=== PATIENT | male | born 2000 | race Caucasian/White ===

== ENCOUNTER 2023-09-21 10:20 | Emergency (ER) | payer MEDICAID, OTHER ==
[~2023-09-21] VITALS: Ht 172.7 cm; Wt 145.1 kg
[2023-09-21 10:30] VITALS: BP 130/72; PULSE 101; RESP 20; TEMP 98.9; O2SAT 98
[2023-09-21] MEDS ORDERED: KETOROLAC 30 MG/ML VIAL IM ONE (10:50)
[2023-09-21] MEDS ORDERED: DEXAMETHASONE 10 MG/ML VIAL IM ONE (10:50)
[2023-09-21] MEDS ORDERED: IBUP-2213 PO (10:50)
[2023-09-21 11:15] VITALS: BP 130/72; PULSE 101; RESP 20; TEMP 98.9; O2SAT 98
== END 2023-09-21 11:10 | disposition home or self-care (01) ==
LOC: MED 10:20
DX: J03.90 Acute tonsillitis, unspecified (principal); Z79.899 Other long term (current) drug therapy
CPT/HCPCS: 96372; 99284; J1100; J1885

== ENCOUNTER 2024-05-19 00:05 | Inpatient (IN) | payer OTHER ==
[~2024-05-19] VITALS: Ht 172.7 cm; Wt 140.6 kg
[~2024-05-19 00:05] MED LIST: IBUP-2213 PO
[2024-05-19 00:13] VITALS: BP 119/70; PULSE 69; RESP 22; TEMP 98.1; O2SAT 99
[2024-05-19] MEDS: NACL 0.9% 1,000 ML IV ONE ×2 (00:37→05:16)
[2024-05-19] MEDS: ONDANSETRON 4 MG/2 ML VIAL IVP ONE (00:42)
[2024-05-19] MEDS: KETOROLAC 30 MG/ML VIAL IVP ONE (00:42)
[2024-05-19 00:52] LABS: ANION GAP 16.9 (8-16); CARBON DIOXIDE 21.5 mmol/L (21-32); CREATININE 0.8 mg/dL (0.6-1.3); HEMATOCRIT 45.4 % (36-52); HEMOGLOBIN 15.5 g/dL (12.0-18.0); MEAN CORPUSCULAR HEMOGLOBIN 30 pg (27-31); MEAN CORPUSCULAR HGB CONC 34 g/dL (33-37); MEAN CORPUSCULAR VOLUME 86.6 fL (80-94); PLATELET COUNT (AUTO) 321 K/uL (140-450); POTASSIUM 3.4 mmol/L (3.5-5.1); RED BLOOD CELL COUNT(AUTO) 5.24 MIL/uL (4.20-6.10); RED CELL DISTRIBUTION WIDTH 13.4 % (11.6-13.7)
[2024-05-19 00:58] LABS: WHITE BLOOD COUNT (AUTO) 23.8 K/uL (4.8-10.8)
[2024-05-19 01:06] LABS: APPEARANCE,URINE CLEAR (CLEAR); BILIRUBIN,URINE NEGATIVE (NEGATIVE); BLOOD, URINE NEGATIVE (NEGATIVE); COLOR,URINE YELLOW (YELLOW); LEUKOCYTE ESTERASE ,URINE NEGATIVE (NEGATIVE); NITRITE, URINE NEGATIVE (NEGATIVE); PH,URINE 7.5 (5.0-9.0); PROTEIN,URINE NEGATIVE (NEGATIVE); UGLUCOSE NEGATIVE (NEGATIVE); UROBILINOGEN,URINE 0.2 EU/dL (0.2 - 1)
[2024-05-19 01:09] LABS: LYMPHOCYTES % (MANUAL) 13 % (20-46); MONOCYTES % (MANUAL) 10 % (5-12)
[2024-05-19 01:10] LABS: PLATELET ESTIMATE ADEQUATE
[2024-05-19 01:14] LABS: RBC,URINE 0-5 /HPF (0-5)
[2024-05-19 01:14] LABS: ALBUMIN 3.6 g/dL (3.4-5.0); BILIRUBIN,DIRECT 0.2 mg/dL (0.0-0.3); TOTAL BILIRUBIN 0.6 mg/dL (0.0-1.0); TOTAL PROTEIN, SERUM 7.9 g/dL (6.4-8.2)
[2024-05-19 01:15] LABS: BACTERIA,URINE None Seen /HPF (None Seen); MUCUS,URINE 1+ /LPF (None Seen); SQUAMOUS EPITHELIAL CELL,UR 0-3 (FEW) /LPF (0-3 (FEW)); WBC,URINE 0-5 /HPF (0-5)
[2024-05-19] MEDS ORDERED: PIPERACILLIN/TAZOBACTAM 3.375 GM VIAL IV ONE (04:47)
[2024-05-19] MEDS: MORPHINE SULFATE 4 MG/ML SYR IVP ONE (05:11)
[2024-05-19] MEDS: PIPERACILLIN/TAZOBACTAM 3.375 GM in DEXTROSE 5% 50 ML IV ONE (05:13)
[2024-05-19 05:27] LABS: LACTIC ACID 1.6 mmol/L (0.4-2.0)
[2024-05-19] MEDS ORDERED: MORPHINE SULFATE 2 MG/ML SYR IVP PRN (05:55)
[2024-05-19] MEDS ORDERED: KCL 20 MEQ IN 100 mL PREMIX 200 ML IV PRN (05:55)
[2024-05-19] MEDS ORDERED: MAGNESIUM OXIDE 400 MG TAB PO PRN (05:55)
[2024-05-19] MEDS ORDERED: MAG SULF 2000 MG/WATER PREMIX 50 ML IV PRN (05:55)
[2024-05-19] MEDS ORDERED: POTASSIUM CHLORIDE 10 MEQ TABER PO PRN (05:55)
[2024-05-19] MEDS ORDERED: PIPERACILLIN/TAZOBACTAM 3.375 GM in DEXTROSE 5% 50 ML IV SCH ×2 (06:00→12:00)
[2024-05-19] MEDS: NACL 0.9% 1,000 ML IV SCH (06:45)
[2024-05-19] MEDS: HYDROcodone/APAP 5/325 MG 1 TAB TAB PO PRN (06:57)
[2024-05-19] MEDS: ONDANSETRON 4 MG/2 ML VIAL IVP PRN (07:03)
[2024-05-19] MEDS: MEDS-TO-BEDS MC SCH (09:00)
[2024-05-19 10:12] VITALS: PULSE 93; RESP 18; O2SAT 98
[2024-05-19 10:25] LABS: BASOPHILS # (AUTO) 0.1 K/uL (0.00-0.22); BASOPHILS % (AUTO) 0.3 % (0.0-2.0); EOSINOPHILS % (AUTO) 0.1 % (0.0-4.0); HEMATOCRIT 45.4 % (36-52); HEMOGLOBIN 15.1 g/dL (12.0-18.0); LYMPHOCYTES # (AUTO) 2.5 K/uL (2.0-11.5); LYMPHOCYTES % (AUTO) 12.8 % (20.5-51.1); MEAN CORPUSCULAR HEMOGLOBIN 29 pg (27-31); MEAN CORPUSCULAR HGB CONC 33 g/dL (33-37); MEAN CORPUSCULAR VOLUME 88.7 fL (80-94); MONOCYTES % (AUTO) 5.3 % (1.7-9.3); NEUTROPHILS # (AUTO) 15.8 K/uL (1.8-7.7); NEUTROPHILS % (AUTO) 81.5 % (42.2-75.2); PLATELET COUNT (AUTO) 307 K/uL (140-450); RED BLOOD CELL COUNT(AUTO) 5.13 MIL/uL (4.20-6.10); RED CELL DISTRIBUTION WIDTH 13.9 % (11.6-13.7); WHITE BLOOD COUNT (AUTO) 19.4 K/uL (4.8-10.8)
[2024-05-19 10:36] LABS: INR 1.11 (0.8-1.2); PARTIAL THROMBOPLASTIN TIME 26.4 secs (22-35.6); PROTHROMBIN TIME 11.6 secs (10.8-13.4)
[2024-05-19 10:37] LABS: ALBUMIN 3.1 g/dL (3.4-5.0); ANION GAP 10.1 (8-16); CALCIUM 8.7 mg/dL (8.5-10.1); CARBON DIOXIDE 27.9 mmol/L (21-32); CREATININE 0.8 mg/dL (0.6-1.3); TOTAL PROTEIN, SERUM 7.3 g/dL (6.4-8.2)
[2024-05-19] MEDS: PIPERACILLIN/TAZOBACTAM 3.375 GM in DEXTROSE 5% 50 ML IV SCH (11:04)
[2024-05-19] MEDS: BUPIVACAINE-MPF 0.25% 30 ML VIAL INJ ONE (11:32)
[2024-05-19 12:00] VITALS: BP 115/65; PULSE 93; RESP 18; TEMP 98; O2SAT 98
[2024-05-19] MEDS: LIDOCAINE/EPI 1% 1:100000 20 ML VIAL INJ ONE (12:14)
[2024-05-19] MEDS: SUGAMMADEX SODIUM 200 MG/2 ML VIAL IV ONE (13:05)
[2024-05-19 16:00] VITALS: BP 107/66; PULSE 68; RESP 20; TEMP 98.1; O2SAT 100
[2024-05-19 20:00] VITALS: BP 112/68; PULSE 68; RESP 18; TEMP 98.5; O2SAT 96
[2024-05-20] VITALS: BP 110/65; PULSE 62; RESP 18; TEMP 98.2; O2SAT 98
[2024-05-20 04:00] VITALS: BP 114/64; PULSE 72; RESP 18; TEMP 98.7; O2SAT 98
[2024-05-20 05:51] LABS: ALBUMIN 2.9 g/dL (3.4-5.0); ANION GAP 13.8 (8-16); CALCIUM 8.7 mg/dL (8.5-10.1); CARBON DIOXIDE 23.9 mmol/L (21-32); CREATININE 0.7 mg/dL (0.6-1.3); MAGNESIUM 2.1 mg/dL (1.8-2.4); POTASSIUM 3.7 mmol/L (3.5-5.1); TOTAL BILIRUBIN 0.7 mg/dL (0.0-1.0); TOTAL PROTEIN, SERUM 7.1 g/dL (6.4-8.2)
[2024-05-20 06:41] LABS: BASOPHILS % (AUTO) 0.2 % (0.0-2.0); HEMATOCRIT 43.2 % (36-52); HEMOGLOBIN 14.2 g/dL (12.0-18.0); LYMPHOCYTES # (AUTO) 2.8 K/uL (2.0-11.5); LYMPHOCYTES % (AUTO) 14.6 % (20.5-51.1); MEAN CORPUSCULAR HEMOGLOBIN 29 pg (27-31); MEAN CORPUSCULAR HGB CONC 33 g/dL (33-37); MEAN CORPUSCULAR VOLUME 88.8 fL (80-94); MONOCYTES # (AUTO) 1.2 K/uL (0.8-1.0); MONOCYTES % (AUTO) 6.3 % (1.7-9.3); NEUTROPHILS # (AUTO) 15.2 K/uL (1.8-7.7); NEUTROPHILS % (AUTO) 78.9 % (42.2-75.2); PLATELET COUNT (AUTO) 288 K/uL (140-450); RED BLOOD CELL COUNT(AUTO) 4.86 MIL/uL (4.20-6.10); RED CELL DISTRIBUTION WIDTH 14.2 % (11.6-13.7); WHITE BLOOD COUNT (AUTO) 19.3 K/uL (4.8-10.8)
[2024-05-20 08:00] VITALS: BP 126/62; PULSE 85; RESP 18; TEMP 98.7; O2SAT 100
[2024-05-20] MEDS: ACETAMINOPHEN 325 MG TAB PO PRN (09:09)
[2024-05-20 12:00] VITALS: BP 126/62; PULSE 85; RESP 18; TEMP 98.7; O2SAT 100
[2024-05-20] MEDS ORDERED: PIPER/TAZO 3.375GM/D5W PREMIX 50 ML IV SCH (13:00)
[2024-05-20] MEDS: PIPERACILLIN/TAZOBACTAM 3.375 GM in DEXTROSE 5% 50 ML IV SCH (13:49)
[2024-05-20 16:00] VITALS: BP 97/46; PULSE 68; RESP 18; TEMP 97.8; O2SAT 100
[2024-05-20 20:00] VITALS: BP 122/62; PULSE 81; RESP 18; TEMP 98; O2SAT 100; O2SAT 98
[2024-05-21 06:45] LABS: BASOPHILS % (AUTO) 0.4 % (0.0-2.0); EOSINOPHILS # (AUTO) 0.1 K/uL (0-0.4); HEMATOCRIT 44.2 % (36-52); HEMOGLOBIN 14.7 g/dL (12.0-18.0); LYMPHOCYTES # (AUTO) 3.3 K/uL (2.0-11.5); MEAN CORPUSCULAR HEMOGLOBIN 29 pg (27-31); MEAN CORPUSCULAR HGB CONC 33 g/dL (33-37); MEAN CORPUSCULAR VOLUME 88.7 fL (80-94); MONOCYTES % (AUTO) 8.2 % (1.7-9.3); NEUTROPHILS # (AUTO) 8.2 K/uL (1.8-7.7); NEUTROPHILS % (AUTO) 64.4 % (42.2-75.2); PLATELET COUNT (AUTO) 299 K/uL (140-450); RED BLOOD CELL COUNT(AUTO) 4.98 MIL/uL (4.20-6.10); RED CELL DISTRIBUTION WIDTH 14.3 % (11.6-13.7); WHITE BLOOD COUNT (AUTO) 12.7 K/uL (4.8-10.8)
[2024-05-21 07:06] LABS: ALBUMIN 2.9 g/dL (3.4-5.0); CALCIUM 8.9 mg/dL (8.5-10.1); CARBON DIOXIDE 27.9 mmol/L (21-32); CREATININE 0.8 mg/dL (0.6-1.3); MAGNESIUM 1.9 mg/dL (1.8-2.4); POTASSIUM 3.9 mmol/L (3.5-5.1); TOTAL BILIRUBIN 0.7 mg/dL (0.0-1.0); TOTAL PROTEIN, SERUM 7.1 g/dL (6.4-8.2)
[2024-05-21 08:00] VITALS: BP 115/59; PULSE 76; RESP 18; TEMP 97.8; O2SAT 98
[2024-05-21 16:00] VITALS: BP 115/59; PULSE 76; RESP 18; TEMP 97.8; O2SAT 98
[2024-05-21 16:06] VITALS: PULSE 72; RESP 20; O2SAT 97
[2024-05-21] MEDS ORDERED: AMOX-999 PO (16:34)
[2024-05-21] MEDS ORDERED: ACET-9525 PO (16:35)
[2024-05-21 16:42] VITALS: BP 115/59; PULSE 72; RESP 20; TEMP 97.8
== END 2024-05-21 17:35 | disposition home or self-care (01) | DRG 234 ==
LOC: MED 00:05 → MTU 05:59
PROVIDERS: ADMIT Internal Medicine; ATTEND Internal Medicine
PROC: 0DTJ4ZZ Resection of Appendix, Percutaneous Endoscopic Approach (ICD-10-PCS; principal; 2024-05-19 11:30)
DX: K35.80 Unspecified acute appendicitis (principal); E87.1 Hypo-osmolality and hyponatremia; D72.829 Elevated white blood cell count, unspecified; E66.9 Obesity, unspecified; Z68.42 Body mass index [BMI] 45.0-49.9, adult; Z79.899 Other long term (current) drug therapy; J35.1 Hypertrophy of tonsils
CPT/HCPCS: 36415; 80048; 80053; 80076; 81001; 83605; 83690; 83735; 85025; 85610; 85730; 87040; 87081; 88304; 93005; 96361; 96365; 96375; 96376; 99291; J1885; J2001; J2270; J2405; J2543; J3490; J7030; J7060; J7120